=== PATIENT | female | born 1985 | race Caucasian/White ===

== ENCOUNTER 2017-08-24 22:09 | Emergency (ER) | payer SELFPAY ==
[~2017-08-24] VITALS: Ht 154.9 cm; Wt 65.0 kg
[2017-08-24 22:13] VITALS: BP 109/60; PULSE 85; RESP 16; TEMP 98.7; O2SAT 97
[2017-08-25] MEDS ORDERED: CEPHALEXIN MONOHYDRATE 500 MG CAP PO ONE (00:45)
[2017-08-25] MEDS ORDERED: SULFAMETHOXAZOLE-TRIMETHOPRIM DS 800-160 MG TAB PO ONE (00:45)
[2017-08-25] MEDS ORDERED: IBUPROFEN 800 MG TAB PO ONE (00:45)
[2017-08-25] MEDS ORDERED: CEPH-460 PO (01:07)
[2017-08-25] MEDS ORDERED: BACT800T5 PO (01:07)
[2017-08-25] MEDS ORDERED: MUPI2OIN TOPICAL (01:08)
--- NOTE | 2017-08-25 01:08 | PD ---
HPI Chief Complaint: Skin Problem Time Seen by Provider: 00:43 Travel History International Travel<30 days: No Contact w/Intl Traveler<30days: No Traveled to known affect area: No History of Present Illness HPI Patient is a 32-year-old female presenting to the emergency department evaluation of skin lesions. Patient states that she ran into something causing the abrasion to the front of her left lower leg. She also is a second larger lesion to the back of the left lower leg. Patient admits to picking at scabs. She denies any fever, chills, nausea, vomiting. She states they are not painful. She has been applying Bactroban daily. Lesions have been present for 3-4 days. Patient reports a dull frontal headache, she states the pain is a 3 out of 10. Her headache she's had in the past. She has not taken any medications to alleviate the pain. She denies any photophobia, visual changes. PFSH Past Medical History Arthritis: No Asthma: No Autoimmune Disease: No Blood Disorders: No Anxiety: Yes Depression: No Heart Rhythm Problems: No Cancer: No Cardiovascular Problems: No High Cholesterol: No Chemotherapy: No Chest Pain: No Congestive Heart Failure: No COPD: No Cerebrovascular Accident: No Diabetes: No Diminished Hearing: No Endocrine: No GERD: No Genitourinary: No Hiatal Hernia: No Immune Disorder: No Kidney Stones: No Musculoskeletal: No Neurologic: Yes Psychiatric: Yes Reproductive: No Respiratory: No Integumentary: Yes (MRSA) Immunizations Current: No Migraines: No Radiation Therapy: No Renal Failure: No Seizures: No Sickle Cell Disease: No Sleep Apnea: No Thyroid Disease: No Ulcer: No Tetanus Vaccination: < 5 Years Influenza Vaccination: No ?: Not LMP: 08/24/2017 : 1 Para: 1 Past Surgical History Abdominal Surgery: No AICD: No Arteriovenous Shunt: No Cardiac Surgery: No Ear Surgery: No Endocrine Surgery: No Eye Surgery: No Genitourinary Surgery: No Gynecologic Surgery: No Insulin Pump: No Joint Replacement: No Oral Surgery: No Pacemaker: No Thoracic Surgery: No Other Surgery: Yes (LT FOOT FX WITH PINNING 12/26/07, left brachial artery replaced) Social History Alcohol Use: No Tobacco Use: Yes (1/2 PPD X 10 YEARS) Substance Use: Yes Allergies-Medications (Allergen,Severity, Reaction): Coded Allergies: acetaminophen (Unverified Allergy, Severe, Nausea/Vomiting, 06/22/17) amoxicillin (Unverified Allergy, Severe, "CHEST TIGHTNESS"/SWELLING, ) propoxyphene (Unverified Allergy, Severe, Nausea/Vomiting, 06/22/17) Reported Meds & Prescriptions Reported Meds & Active Scripts Active Bactrim DS (Sulfamethoxazole-Trimethoprim) 800-160 Mg Tab 1 Tab PO BID Keflex (Cephalexin) 500 Mg Cap 500 Mg PO Q12H 10 Days Review of Systems Except as stated in HPI: all other systems reviewed are Neg General / Constitutional: No: Fever, Chills Eyes: No: Blurred Vision, Photophobia, Visual changes HENT: Positive: Headaches Cardiovascular: No: Chest Pain or Discomfort Respiratory: No: Shortness of Breath Gastrointestinal: No: Nausea, Abdominal Pain Musculoskeletal: No: Myalgias Skin: Positive Lesions Psychiatric: Positive: Substance Abuse Physical Exam Narrative GENERAL: Well-developed, well-nourished, alert female. SKIN: Warm and dry. Bilateral lower extremities have multiple scabbed lesions varying sizes, the left lower leg on the anterior aspect has a scabbed lesion measuring 4 x 4 with a 1 cm area of induration. Second scabbed lesion to the left posterior leg just distal to the knee measuring 9 x 5 cm. No warmth or exudate noted. Patient has multiple small lesions to her arms. Tract castillo noted to right antecubital space as well as hands and feet. HEAD: Atraumatic. Normocephalic. EYES: Pupils equal and round. No scleral icterus. No injection or drainage. ENT: No nasal bleeding or discharge. Mucous membranes pink and moist. NECK: Trachea midline. No JVD. CARDIOVASCULAR: Regular rate and rhythm. RESPIRATORY: No accessory muscle use. Clear to auscultation. Breath sounds equal bilaterally. GASTROINTESTINAL: Abdomen soft, non-tender, nondistended. Hepatic and splenic margins not palpable. MUSCULOSKELETAL: Extremities without clubbing, cyanosis, or edema. No obvious deformities. NEUROLOGICAL: Awake and alert. No obvious cranial nerve deficits. Motor grossly within normal limits. Five out of 5 muscle strength in the arms and legs. Normal speech. PSYCHIATRIC: Appropriate mood and affect; insight and judgment normal. Data Data Last Documented VS Vital Signs Date Time Temp Pulse Resp B/P (MAP) Pulse Ox O2 Delivery O2 Flow Rate FiO2 08/25/17 00:53 85 18 08/24/17 22:13 98.7 109/60 (76) 97 Orders Orders Ibuprofen (Motrin) (08/25/17 00:45) Sulfamet-Trimeth Ds 800-160 Mg (Bactrim (08/25/17 00:45) Cephalexin (Keflex) (08/25/17 00:45) MDM Medical Decision Making Medical Screen Exam Complete: Yes Emergency Medical Condition: Yes Medical Record Reviewed: Yes Interpretation(s) Vital Signs Date Time Temp Pulse Resp B/P (MAP) Pulse Ox O2 Delivery O2 Flow Rate FiO2 08/25/17 00:53 85 18 08/24/17 22:13 98.7 85 16 109/60 (76) 97 Differential Diagnosis Cellulitis versus abscess versus impetigo versus picking disorder versus other Narrative Course Patient's 32-year-old female that presented to emergency for evaluation of lesions to her left lower leg. On exam patient was noted to have multiple scabbed lesions of varying sizes to her arms and legs. Illness. Patient's vital signs are stable and she is afebrile. Patient admits to picking at scabs. Patient initially denied any IV drug use then confessed to the RN that she did inject a few days ago. At this time patient will be started antibiotics empirically. Patient also complained of a dull headache, she reported that the headache is similar to headache she has had in the past. She was given 800 mg of ibuprofen orally. She'll be given a refill of Bactroban. She was encouraged to avoid picking to prevent a secondary skin infection. She was eyes to avoid IV drug use. She return to emergency department immediately for any new or worsening symptoms. Patient verbalized understanding of instructions. Patient is stable for discharge. Diagnosis Primary Impression: Skin lesions, generalized Referrals: [facility] Primary Care Physician Patient Instructions: Cellulitis (ED), General Instructions Additional Instructions: Do not pick at the scabs Apply topical mupirocin ointment twice daily as advised Complete full course of antibiotics as directed Avoid IV drug use Follow-up with a primary doctor or at the [facility] Return to emergency department for any new or worsening symptoms Med/Other Pt SpecificInfo: Prescription(s) given Scripts Mupirocin Topical (Mupirocin Topical) 2 % Oint 1 APPLIC TOPICAL BID for Mgmt Bacterial Infection, #22 GM 0 Refills Prov: Joanna Recinos 08/25/17 Sulfamethoxazole-Trimethoprim (Bactrim DS) 800-160 Mg Tab 1 TAB PO BID for Infection, #20 TAB 0 Refills Prov: Joanna Recinos 08/25/17 Cephalexin (Keflex) 500 Mg Cap 500 MG PO Q12H for Infection for 10 Days, #20 CAP 0 Refills Prov: Joanna Recinos 08/25/17 Disposition: 01 DISCHARGE HOME Condition: Stable Joanna Recinos Aug 25, 2017 01:08
[2017-08-25 01:22] VITALS: BP 112/64; PULSE 80; RESP 18; O2SAT 98
== END 2017-08-25 01:38 | disposition home or self-care (01) ==
LOC: NEPD 22:09
DX: L98.9 Disorder of the skin and subcutaneous tissue, unspecified (principal); R51 Headache
CPT/HCPCS: 99284